=== PATIENT | male | born 1940 | race Caucasian/White ===

== ENCOUNTER 2019-09-28 11:05 | Inpatient (IN) ==
[2019-09-28 12:50] LABS: Basophils % 0.2 %; Eosinophils # 0.1 K/mcL (0.0-0.6); Eosinophils % 0.6 %; Hemoglobin 13.6 g/dL (12.9-16.9); Immature Granulocytes % 0.5 % (0-4); Mean Corpuscular Hemoglobin 34.3 pg (28.0-33.3); Mean Corpuscular Volume 100.8 fL (83.0-100.0); Mean Platelet Volume 11.4 fL (9.4-12.4); Monocytes # 0.6 K/mcL (0.0-1.3); Monocytes % 6.2 %; Neutrophils # 8.4 K/mcL (1.6-8.9); Red Blood Count 3.97 M/mcL (4.19-5.50); Red Cell Distribution Width 13.1 % (11.5-14.5); Segmented Neutrophils % 82.5 %; White Blood Count 10.1 K/mcL (4.3-11.1)
[2019-09-28 12:51] LABS: INR 1.2; Prothrombin Time 13.7 Seconds (9.4-12.1)
[2019-09-28 12:53] LABS: Platelet Count 93 K/mcL (140-400)
[2019-09-28 12:53] LABS: Bilirubin,Urine Small (Negative); Blood,Urine Small (Negative); Clarity,Urine Clear (Clear); Color,Urine Dark Yellow (Yellow); Glucose,Urine (UA) Normal (Normal); Ketones,Urine Trace mg/dL (Negative); Leukocyte Esterase,Urine Negative (Negative); Nitrite,Urine Negative (Negative); Protein,Urine 30 mg/dL (Neg-Trace)
[2019-09-28 12:54] LABS: Activated Partial Thrombo Time 32.3 Seconds (26.0-36.0)
[2019-09-28 12:59] LABS: Bacteria,Urine Few per hpf (None-Few); Hyaline Casts,Urine Few per lpf (None-Few); Mucus,Urine Few per lpf (Few); Squamous Epithelial Cell,Urine Moderate per lpf (None-Few); WBC,Urine 0-3 per hpf (0-3)
[2019-09-28 13:02] LABS: BUN/Creatinine Ratio 16 (6-26); Blood Urea Nitrogen 35 mg/dL (8-23); Calcium 9.5 mg/dL (8.6-10.3); Carbon Dioxide 29 mEq/L (23-29); Chloride 105 mEq/L (98-107); Glucose 148 mg/dL (70-105); Osmolality,Calculated 305 (280-300); Potassium 4.1 mEq/L (3.5-5.1); Sodium 142 mEq/L (136-145); eGFR For African Americans 36 (> 60); eGFR For Non-African Americans 30 (> 60)
[2019-09-28 13:03] LABS: Troponin I < 0.03 ng/mL (< 0.04)
[2019-09-28] MEDS ORDERED: Azithromycin 500 MG in 0.9 % Sodium Chloride 250 ML IVPB ONE (13:32)
[2019-09-28] MEDS ORDERED: cefTRIAXone 1,000 MG in Water for inj. (sterile) 10 ML IVP ONE (13:44)
[2019-09-28 15:29] LABS: Albumin 4.2 g/dL (3.5-5.7); Albumin/Globulin Ratio 1.4 (1.1-2.2); Bilirubin,Total 1.7 mg/dL (0.3-1.0); Calcium 9.4 mg/dL (8.6-10.3); Potassium 4.1 mEq/L (3.5-5.1); Total Protein 7.2 g/dL (6.4-8.9)
[2019-09-28] MEDS ORDERED: Ondansetron 4 MG/2 ML VIAL IVP PRN (15:29)
[2019-09-28] MEDS ORDERED: Naloxone 0.4 MG/ML INJ IVP PRN (15:29)
[2019-09-28] MEDS ORDERED: *HR* Dextrose 50 % in Water (Syg) 50 ML SYRINGE IVP PRN (15:32)
[2019-09-28] MEDS ORDERED: Dextrose Gel 15 GM/37.5 ML TUBE PO PRN ×2 (15:32)
[2019-09-28] MEDS ORDERED: D5% in Water 1,000 ML IVC PRN (15:32)
[2019-09-28] MEDS: 0.9 % Sodium Chloride 1,000 ML IV SCH (16:33)
[2019-09-28] MEDS: Insulin LISPRO 300 UNITS/3 ML VIAL SQ SCH ×2 (16:37→20:55)
[2019-09-28] MEDS: Lactulose Oral Soln 20 GM/30 ML UDC PO SCH (21:22)
[2019-09-28] MEDS: carvediloL 6.25 MG TABLET PO SCH (21:23)
[2019-09-28] MEDS: Latanoprost 2.5 ML BOTTLE BOTH EYES SCH (21:31)
[2019-09-28] MEDS: Ipratropium/Albuterol Neb 3 ML IH PRN (21:46)
[2019-09-29] MEDS: cefTRIAXone 2,000 MG in Water for inj. (sterile) 20 ML IVPB SCH (03:00)
[2019-09-29] MEDS: 0.9 % Sodium Chloride 1,000 ML IV SCH ×2 (05:52→20:28)
[2019-09-29 07:11] LABS: Basophils % 0.3 %; Eosinophils # 0.1 K/mcL (0.0-0.6); Eosinophils % 1.2 %; Hematocrit 35.1 % (37.5-50.1); Hemoglobin 12.2 g/dL (12.9-16.9); Immature Granulocytes % 0.2 % (0-4); Lymphocytes # 0.9 K/mcL (0.6-4.6); Lymphocytes % 15.5 %; Mean Corpuscular HGB Conc 34.8 g/dL (31.6-35.5); Mean Corpuscular Volume 100.6 fL (83.0-100.0); Mean Platelet Volume 11.3 fL (9.4-12.4); Monocytes # 0.5 K/mcL (0.0-1.3); Monocytes % 7.8 %; Neutrophils # 4.5 K/mcL (1.6-8.9); Red Blood Count 3.49 M/mcL (4.19-5.50); White Blood Count 5.9 K/mcL (4.3-11.1)
[2019-09-29 07:18] LABS: Platelet Count 78 K/mcL (140-400)
[2019-09-29 07:31] LABS: Calcium 8.8 mg/dL (8.6-10.3)
[2019-09-29] MEDS: Lactulose Oral Soln 20 GM/30 ML UDC PO SCH ×2 (08:57→20:27)
[2019-09-29] MEDS: Aspirin Enteric Coated 81 MG Tablet PO SCH (08:59)
[2019-09-29] MEDS: carvediloL 6.25 MG TABLET PO SCH ×2 (08:59→20:27)
[2019-09-29] MEDS: Insulin LISPRO 300 UNITS/3 ML VIAL SQ SCH ×4 (08:59→20:38)
[2019-09-29 09:22] LABS: Folate 21.4 ng/mL (3.0-16.0)
[2019-09-29 11:06] LABS: Adenovirus Not Detected (Not Detect); Bordetella Pertussis Not Detected (Not Detect); Chlamydophila pneumoniae Not Detected (Not Detect); Coronavirus 229E Not Detected (Not Detect); Coronavirus HKU1 Not Detected (Not Detect); Coronavirus NL63 Not Detected (Not Detect); Coronavirus OC43 Not Detected (Not Detect); Human Metapneumovirus Not Detected (Not Detect); Human Rhinovirus/Enterovirus DETECTED (Not Detect); Influenza A Subtype 2009 H1 Not Detected (Not Detect); Influenza B Not Detected (Not Detect); Mycoplasma pneumoniae Not Detected (Not Detect); Parainfluenza Virus 1 Not Detected (Not Detect); Parainfluenza Virus 2 Not Detected (Not Detect); Parainfluenza Virus 3 Not Detected (Not Detect); Parainfluenza Virus 4 Not Detected (Not Detect); Respiratory Syncytial Virus Not Detected (Not Detect)
[2019-09-29] MEDS: Azithromycin 500 MG in 0.9 % Sodium Chloride 250 ML IVPB SCH (14:45)
[2019-09-29] MEDS: Latanoprost 2.5 ML BOTTLE BOTH EYES SCH (20:28)
[2019-09-30] MEDS: cefTRIAXone 2,000 MG in Water for inj. (sterile) 20 ML IVPB SCH (02:18)
[2019-09-30] MEDS: Ipratropium/Albuterol Neb 3 ML IH PRN (06:26)
[2019-09-30 07:15] LABS: Hematocrit 34.4 % (37.5-50.1); Hemoglobin 11.7 g/dL (12.9-16.9); Mean Corpuscular Hemoglobin 34.5 pg (28.0-33.3); Mean Corpuscular Volume 101.5 fL (83.0-100.0); Red Blood Count 3.39 M/mcL (4.19-5.50); Red Cell Distribution Width 13.1 % (11.5-14.5)
[2019-09-30 07:26] LABS: Platelet Count 76 K/mcL (140-400)
[2019-09-30 07:50] LABS: Calcium 8.6 mg/dL (8.6-10.3); Potassium 4.2 mEq/L (3.5-5.1)
[2019-09-30] MEDS: Lactulose Oral Soln 20 GM/30 ML UDC PO SCH ×2 (07:52→20:09)
[2019-09-30] MEDS: Aspirin Enteric Coated 81 MG Tablet PO SCH (07:55)
[2019-09-30] MEDS: carvediloL 6.25 MG TABLET PO SCH ×2 (07:55→20:09)
[2019-09-30] MEDS: Insulin LISPRO 300 UNITS/3 ML VIAL SQ SCH ×4 (07:56→20:10)
[2019-09-30] MEDS: Azithromycin 500 MG in 0.9 % Sodium Chloride 250 ML IVPB SCH (14:55)
[2019-09-30] MEDS: Latanoprost 2.5 ML BOTTLE BOTH EYES SCH (20:10)
[2019-10-01] MEDS: cefTRIAXone 2,000 MG in Water for inj. (sterile) 20 ML IVPB SCH (01:09)
[2019-10-01 06:36] VITALS: BP 137/89
[2019-10-01 06:57] LABS: Hematocrit 37.8 % (37.5-50.1); Hemoglobin 12.5 g/dL (12.9-16.9); Mean Corpuscular HGB Conc 33.1 g/dL (31.6-35.5); Mean Corpuscular Hemoglobin 33.9 pg (28.0-33.3); Mean Corpuscular Volume 102.4 fL (83.0-100.0); Mean Platelet Volume 12.3 fL (9.4-12.4); Platelet Count 89 K/mcL (140-400); Red Blood Count 3.69 M/mcL (4.19-5.50); Red Cell Distribution Width 13.1 % (11.5-14.5); White Blood Count 7.5 K/mcL (4.3-11.1)
[2019-10-01 07:08] LABS: Calcium 9.3 mg/dL (8.6-10.3); Potassium 4.6 mEq/L (3.5-5.1)
[2019-10-01] MEDS: Ipratropium/Albuterol Neb 3 ML IH PRN (08:00)
[2019-10-01] MEDS: Lactulose Oral Soln 20 GM/30 ML UDC PO SCH (08:39)
[2019-10-01] MEDS: Aspirin Enteric Coated 81 MG Tablet PO SCH (08:40)
[2019-10-01] MEDS: Insulin LISPRO 300 UNITS/3 ML VIAL SQ SCH ×2 (08:40→12:11)
[2019-10-01] MEDS: carvediloL 6.25 MG TABLET PO SCH (08:40)
[2019-10-01] MEDS ORDERED: 0.9 % Sodium Chloride 1,000 ML IV SCH (10:30)
[2019-10-01] MEDS ORDERED: Ipratropium/Albuterol Neb 3 ML IH SCH (12:00)
[2019-10-01] MEDS: Azithromycin 500 MG in 0.9 % Sodium Chloride 250 ML IVPB SCH (12:12)
[2019-10-02] MEDS ORDERED: predniSONE 20 MG TABLET PO SCH (09:00)
== END 2019-10-01 13:09 | DRG 194 ==
LOC: INPPIK 11:05 → EMEROOPIK 11:05 → INPPIK 14:50
PROVIDERS: ADMIT Family Medicine; ATTEND Family Medicine

== ENCOUNTER 2019-10-01 10:42 | Inpatient (IN) ==
[2019-10-01] MEDS ORDERED: CefTRIAXone 2,000 MG VIAL IVPB SCH (15:00)
[2019-10-01] MEDS ORDERED: Lactulose Oral Soln 20 GM/30 ML UDC PO PRN (15:03)
[2019-10-01] MEDS ORDERED: 0.9 % Sodium Chloride 1,000 ML IVC SCH (15:30)
[2019-10-01] MEDS ORDERED: Ondansetron 4 MG/2 ML VIAL IVP PRN (15:31)
[2019-10-01] MEDS ORDERED: Naloxone 0.4 MG/ML INJ IVP PRN (15:32)
[2019-10-01] MEDS ORDERED: D5% in Water 1,000 ML IVC PRN (15:36)
[2019-10-01] MEDS ORDERED: *HR* Dextrose 50 % in Water (Vial) 50 ML VIAL IVP PRN (15:36)
[2019-10-01] MEDS ORDERED: Dextrose Gel 15 GM/37.5 ML TUBE PO PRN ×2 (15:36)
[2019-10-01] MEDS: Ipratropium/Albuterol Neb 3 ML IH SCH ×2 (16:13→20:50)
[2019-10-01] MEDS: carvediloL 6.25 MG TABLET PO SCH (17:25)
[2019-10-01] MEDS: cephALEXin 500 MG CAPSULE PO SCH (21:29)
[2019-10-01] MEDS: Insulin DETEMIR 100 UNIT/ML X5UNITS SQ SCH (21:30)
[2019-10-01] MEDS: Latanoprost 2.5 ML BOTTLE BOTH EYES SCH (21:35)
[2019-10-02] MEDS: Ipratropium/Albuterol Neb 3 ML IH SCH ×7 (00:34→23:14)
[2019-10-02 05:10] LABS: Hematocrit 36.3 % (37.5-50.1); Hemoglobin 12.2 g/dL (12.9-16.9); Mean Corpuscular HGB Conc 33.6 g/dL (31.6-35.5); Mean Corpuscular Hemoglobin 34.2 pg (28.0-33.3); Mean Corpuscular Volume 101.7 fL (83.0-100.0); Mean Platelet Volume 12.2 fL (9.4-12.4); Platelet Count 102 K/mcL (140-400); Red Blood Count 3.57 M/mcL (4.19-5.50); White Blood Count 7.8 K/mcL (4.3-11.1)
[2019-10-02 05:32] LABS: Calcium 9.3 mg/dL (8.6-10.3); Potassium 4.8 mEq/L (3.5-5.1)
[2019-10-02] MEDS: predniSONE 20 MG TABLET PO SCH ×2 (08:48→09:08)
[2019-10-02] MEDS: carvediloL 6.25 MG TABLET PO SCH ×3 (08:48→15:53)
[2019-10-02] MEDS: Aspirin Enteric Coated 81 MG Tablet PO SCH ×2 (08:48→09:08)
[2019-10-02] MEDS: GlipiZIDE 5 MG TABLET PO SCH ×2 (08:48→09:08)
[2019-10-02] MEDS: Cholecalciferol (D-3) 1,000 UNIT (25MCG) TABLET PO SCH ×2 (08:48→09:09)
[2019-10-02] MEDS ORDERED: predniSONE 20 MG TABLET PO SCH (09:00)
[2019-10-02] MEDS: cephALEXin 500 MG CAPSULE PO SCH ×2 (09:08→20:41)
[2019-10-02] MEDS ORDERED: Azithromycin 500 MG VIAL IVPB SCH (15:00)
[2019-10-02] MEDS: Latanoprost 2.5 ML BOTTLE BOTH EYES SCH (20:41)
[2019-10-02] MEDS: Insulin DETEMIR 100 UNIT/ML X5UNITS SQ SCH (20:42)
[2019-10-03] MEDS: Ipratropium/Albuterol Neb 3 ML IH SCH ×5 (03:47→20:24)
[2019-10-03] MEDS ORDERED: Lactulose 200 GM/300 ML (for enema) RC SCH ×2 (09:43→10:07)
[2019-10-03] MEDS ORDERED: 0.9 % Sodium Chloride 1,000 ML IVC SCH ×2 (09:45→10:04)
[2019-10-03] MEDS: predniSONE 20 MG TABLET PO SCH (09:49)
[2019-10-03] MEDS: Cholecalciferol (D-3) 1,000 UNIT (25MCG) TABLET PO SCH (09:50)
[2019-10-03] MEDS: cephALEXin 500 MG CAPSULE PO SCH (09:50)
[2019-10-03] MEDS: Aspirin Enteric Coated 81 MG Tablet PO SCH (09:50)
[2019-10-03] MEDS: GlipiZIDE 5 MG TABLET PO SCH (09:50)
[2019-10-03] MEDS: carvediloL 6.25 MG TABLET PO SCH ×2 (09:50→17:26)
[2019-10-03] MEDS: cefTRIAXone 1,000 MG in Water for inj. (sterile) 10 ML IVP SCH (13:47)
[2019-10-03] MEDS ORDERED: *HR* Dextrose 50 % in Water (Syg) 50 ML SYRINGE IVP PRN (16:48)
[2019-10-03] MEDS ORDERED: D5% in Water 1,000 ML IVC PRN (16:48)
[2019-10-03] MEDS ORDERED: Dextrose Gel 15 GM/37.5 ML TUBE PO PRN ×2 (16:48)
[2019-10-03] MEDS: Insulin LISPRO 300 UNITS/3 ML VIAL SQ SCH ×2 (17:26→21:57)
[2019-10-03] MEDS: Lactulose 200 GM, Sodium Chloride IRRigation 700 ML RC SCH (17:30)
[2019-10-03] MEDS: Latanoprost 2.5 ML BOTTLE BOTH EYES SCH (21:45)
[2019-10-03] MEDS: Insulin DETEMIR 100 UNIT/ML X5UNITS SQ SCH (21:56)
[2019-10-04] MEDS: Ipratropium/Albuterol Neb 3 ML IH SCH ×3 (00:43→08:11)
[2019-10-04] MEDS: Lactulose 200 GM, Sodium Chloride IRRigation 700 ML RC SCH (04:49)
[2019-10-04 05:22] LABS: Hematocrit 38.2 % (37.5-50.1); Hemoglobin 12.7 g/dL (12.9-16.9); Mean Corpuscular HGB Conc 33.2 g/dL (31.6-35.5); Mean Corpuscular Hemoglobin 34.2 pg (28.0-33.3); Mean Platelet Volume 12.4 fL (9.4-12.4); Platelet Count 104 K/mcL (140-400); Red Blood Count 3.71 M/mcL (4.19-5.50); Red Cell Distribution Width 13.1 % (11.5-14.5); White Blood Count 9.2 K/mcL (4.3-11.1)
[2019-10-04 05:41] LABS: Albumin 3.5 g/dL (3.5-5.7); Albumin/Globulin Ratio 1.3 (1.1-2.2); Bilirubin,Total 1.3 mg/dL (0.3-1.0); Calcium 9.1 mg/dL (8.6-10.3); Globulin 2.8 g/dL (2.4-3.5); Magnesium 2.1 mg/dL (1.6-2.6); Potassium 5.1 mEq/L (3.5-5.1); Total Protein 6.3 g/dL (6.4-8.9)
[2019-10-04] MEDS: Insulin LISPRO 300 UNITS/3 ML VIAL SQ SCH ×4 (09:25→20:29)
[2019-10-04] MEDS: predniSONE 20 MG TABLET PO SCH (09:26)
[2019-10-04] MEDS: Cholecalciferol (D-3) 1,000 UNIT (25MCG) TABLET PO SCH (09:26)
[2019-10-04] MEDS: carvediloL 6.25 MG TABLET PO SCH ×2 (09:26→16:53)
[2019-10-04] MEDS: Aspirin Enteric Coated 81 MG Tablet PO SCH (09:26)
[2019-10-04] MEDS: GlipiZIDE 5 MG TABLET PO SCH (09:26)
[2019-10-04] MEDS: cefTRIAXone 1,000 MG in Water for inj. (sterile) 10 ML IVP SCH (09:27)
[2019-10-04] MEDS ORDERED: Ipratropium/Albuterol Neb 3 ML IH PRN (11:00)
[2019-10-04] MEDS: Insulin DETEMIR 100 UNIT/ML X5UNITS SQ SCH (20:29)
[2019-10-04] MEDS: Latanoprost 2.5 ML BOTTLE BOTH EYES SCH (20:30)
[2019-10-05] MEDS: predniSONE 20 MG TABLET PO SCH ×2 (07:29→08:09)
[2019-10-05] MEDS: Aspirin Enteric Coated 81 MG Tablet PO SCH (08:08)
[2019-10-05] MEDS: Cholecalciferol (D-3) 1,000 UNIT (25MCG) TABLET PO SCH (08:08)
[2019-10-05] MEDS: GlipiZIDE 5 MG TABLET PO SCH (08:08)
[2019-10-05] MEDS: carvediloL 6.25 MG TABLET PO SCH ×2 (08:09→16:13)
[2019-10-05] MEDS: Insulin LISPRO 300 UNITS/3 ML VIAL SQ SCH ×4 (08:21→20:21)
[2019-10-05] MEDS: cefTRIAXone 1,000 MG in Water for inj. (sterile) 10 ML IVP SCH (10:11)
[2019-10-05] MEDS: Insulin DETEMIR 100 UNIT/ML X5UNITS SQ SCH (20:12)
[2019-10-05] MEDS: Latanoprost 2.5 ML BOTTLE BOTH EYES SCH (20:22)
[2019-10-06] MEDS: Insulin LISPRO 300 UNITS/3 ML VIAL SQ SCH ×4 (08:17→20:25)
[2019-10-06] MEDS: predniSONE 20 MG TABLET PO SCH (08:19)
[2019-10-06] MEDS: Aspirin Enteric Coated 81 MG Tablet PO SCH (08:19)
[2019-10-06] MEDS: GlipiZIDE 5 MG TABLET PO SCH (08:20)
[2019-10-06] MEDS: Cholecalciferol (D-3) 1,000 UNIT (25MCG) TABLET PO SCH (08:20)
[2019-10-06] MEDS: carvediloL 6.25 MG TABLET PO SCH ×2 (08:20→16:35)
[2019-10-06] MEDS: cefTRIAXone 1,000 MG in Water for inj. (sterile) 10 ML IVP SCH (08:21)
[2019-10-06 10:04] LABS: Calcium 9.3 mg/dL (8.6-10.3); Potassium 4.9 mEq/L (3.5-5.1)
[2019-10-06] MEDS ORDERED: Ringers Solution, Lactated 500 ML IVC SCH (10:45)
[2019-10-06] MEDS: Latanoprost 2.5 ML BOTTLE BOTH EYES SCH (20:24)
[2019-10-06] MEDS: Insulin DETEMIR 100 UNIT/ML X5UNITS SQ SCH (20:24)
[2019-10-07] MEDS: Cholecalciferol (D-3) 1,000 UNIT (25MCG) TABLET PO SCH (09:06)
[2019-10-07] MEDS: GlipiZIDE 5 MG TABLET PO SCH (09:06)
[2019-10-07] MEDS: predniSONE 20 MG TABLET PO SCH (09:07)
[2019-10-07] MEDS: carvediloL 6.25 MG TABLET PO SCH ×2 (09:07→17:08)
[2019-10-07] MEDS: Aspirin Enteric Coated 81 MG Tablet PO SCH (09:07)
[2019-10-07] MEDS: cefTRIAXone 1,000 MG in Water for inj. (sterile) 10 ML IVP SCH (09:12)
[2019-10-07] MEDS: Insulin LISPRO 300 UNITS/3 ML VIAL SQ SCH ×4 (09:16→20:28)
[2019-10-07] MEDS: Insulin DETEMIR 100 UNIT/ML X5UNITS SQ SCH (20:28)
[2019-10-07] MEDS: Latanoprost 2.5 ML BOTTLE BOTH EYES SCH (20:30)
[2019-10-08] MEDS: Insulin LISPRO 300 UNITS/3 ML VIAL SQ SCH ×4 (07:53→20:50)
[2019-10-08] MEDS: cefTRIAXone 1,000 MG in Water for inj. (sterile) 10 ML IVP SCH (10:00)
[2019-10-08] MEDS: Aspirin Enteric Coated 81 MG Tablet PO SCH (10:01)
[2019-10-08] MEDS: GlipiZIDE 5 MG TABLET PO SCH (10:01)
[2019-10-08] MEDS: carvediloL 6.25 MG TABLET PO SCH ×2 (10:01→16:34)
[2019-10-08] MEDS: predniSONE 20 MG TABLET PO SCH (10:02)
[2019-10-08] MEDS: Cholecalciferol (D-3) 1,000 UNIT (25MCG) TABLET PO SCH (10:02)
[2019-10-08] MEDS: Insulin DETEMIR 100 UNIT/ML X5UNITS SQ SCH (20:49)
[2019-10-08] MEDS: Latanoprost 2.5 ML BOTTLE BOTH EYES SCH (20:51)
[2019-10-09] MEDS: Cholecalciferol (D-3) 1,000 UNIT (25MCG) TABLET PO SCH (09:35)
[2019-10-09] MEDS: predniSONE 20 MG TABLET PO SCH (09:35)
[2019-10-09] MEDS: carvediloL 6.25 MG TABLET PO SCH ×2 (09:35→18:22)
[2019-10-09] MEDS: GlipiZIDE 5 MG TABLET PO SCH (09:35)
[2019-10-09] MEDS: Aspirin Enteric Coated 81 MG Tablet PO SCH (09:35)
[2019-10-09] MEDS: Insulin LISPRO 300 UNITS/3 ML VIAL SQ SCH ×4 (09:36→20:39)
[2019-10-09] MEDS: cefTRIAXone 1,000 MG in Water for inj. (sterile) 10 ML IVP SCH (09:37)
[2019-10-09 11:12] LABS: Calcium 8.7 mg/dL (8.6-10.3); Potassium 4.9 mEq/L (3.5-5.1)
[2019-10-09] MEDS: Insulin DETEMIR 100 UNIT/ML X5UNITS SQ SCH (20:39)
[2019-10-09] MEDS: Latanoprost 2.5 ML BOTTLE BOTH EYES SCH (20:39)
[2019-10-10 07:56] LABS: Hematocrit 39.3 % (37.5-50.1); Hemoglobin 13.2 g/dL (12.9-16.9); Mean Corpuscular HGB Conc 33.6 g/dL (31.6-35.5); Mean Corpuscular Hemoglobin 34.2 pg (28.0-33.3); Mean Corpuscular Volume 101.8 fL (83.0-100.0); Mean Platelet Volume 11.7 fL (9.4-12.4); Platelet Count 100 K/mcL (140-400); Red Blood Count 3.86 M/mcL (4.19-5.50); Red Cell Distribution Width 13.9 % (11.5-14.5); White Blood Count 14.5 K/mcL (4.3-11.1)
[2019-10-10 08:18] LABS: Calcium 8.9 mg/dL (8.6-10.3); Potassium 4.8 mEq/L (3.5-5.1)
[2019-10-10] MEDS: Insulin LISPRO 300 UNITS/3 ML VIAL SQ SCH ×4 (08:51→21:33)
[2019-10-10] MEDS: carvediloL 6.25 MG TABLET PO SCH ×2 (08:55→16:49)
[2019-10-10] MEDS: Aspirin Enteric Coated 81 MG Tablet PO SCH (08:55)
[2019-10-10] MEDS: GlipiZIDE 5 MG TABLET PO SCH (08:55)
[2019-10-10] MEDS: Cholecalciferol (D-3) 1,000 UNIT (25MCG) TABLET PO SCH (08:59)
[2019-10-10] MEDS ORDERED: predniSONE 20 MG TABLET PO SCH (09:00)
[2019-10-10] MEDS: Insulin DETEMIR 100 UNIT/ML X5UNITS SQ SCH (21:33)
[2019-10-10] MEDS: Latanoprost 2.5 ML BOTTLE BOTH EYES SCH (21:35)
[2019-10-11 05:46] VITALS: BP 133/85
[2019-10-11] MEDS ORDERED: predniSONE 10 MG TABLET PO SCH (08:15)
[2019-10-11] MEDS: Insulin LISPRO 300 UNITS/3 ML VIAL SQ SCH ×2 (08:15→12:20)
[2019-10-11] MEDS: Aspirin Enteric Coated 81 MG Tablet PO SCH (08:16)
[2019-10-11] MEDS: GlipiZIDE 5 MG TABLET PO SCH (08:16)
[2019-10-11] MEDS: Cholecalciferol (D-3) 1,000 UNIT (25MCG) TABLET PO SCH (08:16)
[2019-10-11] MEDS: carvediloL 6.25 MG TABLET PO SCH (08:16)
[2019-10-11 13:36] LABS: Hematocrit 41.5 % (37.5-50.1); Mean Corpuscular HGB Conc 33.7 g/dL (31.6-35.5); Mean Corpuscular Hemoglobin 34.6 pg (28.0-33.3); Mean Corpuscular Volume 102.5 fL (83.0-100.0); Mean Platelet Volume 11.6 fL (9.4-12.4); Platelet Count 80 K/mcL (140-400); Red Blood Count 4.05 M/mcL (4.19-5.50); Red Cell Distribution Width 14.1 % (11.5-14.5); White Blood Count 12.8 K/mcL (4.3-11.1)
[2019-10-11 13:55] LABS: Calcium 8.7 mg/dL (8.6-10.3); Potassium 4.6 mEq/L (3.5-5.1)
== END 2019-10-11 15:22 | disposition hospice, home (50) | DRG 193 ==
LOC: INPPIK 13:14
PROVIDERS: ADMIT Family Medicine; ATTEND Family Medicine